=== PATIENT | female | born 1995 | race Caucasian/White ===

== ENCOUNTER 2024-09-08 23:21 | Emergency (ER) | payer OTHER, SELFPAY ==
[2024-09-08 23:24] VITALS: BP 152/93
--- NOTE | 2024-09-09 00:30 | ED.GENMED ---
History of Present Illness
General
Chief Complaint: Headache
Source: patient
Time Seen by Provider: 09/09/24 00:14
History of Present Illness
History of Present Illness:
28-year-old female with past medical history of migraines ADHD and anxiety presenting to the ER for evaluation of migraine headache that has been almost daily over the last 2 weeks described to be posterior and into her neck, pressure-like,
nonradiating, will be intermittently relieved with her triptan medication and Excedrin but returned shortly thereafter. Patient states she has been taking a triptan almost daily during this time but normally does not like taking the Excedrin due
to some of the side effects she feels. Patient has had a CT scan done a few years ago due to her migraines and is currently in the process of trying to follow-up with neurology but has been having trouble finding an appointment. She denies any
fevers, focal weakness or numbness or any other concerns presently. Social history was noted for smoking 1 pack/day as well as medical marijuana for her migraines.
Past History
Past History
ED Past Medical History: Psychiatric and Other (Migraines)
ED Past Surgical History: None
Social History
Tobacco: Smoker
Alcohol: None
Drug: None
Personal: Single
Living: with family
Family History
Family History: Hypertension
Review of Systems
Review of Systems
All Other Systems: ROS reviewed and negative except as documented in HPI and ROS
Phy Exam
Physical Exam
Physical Exam:
GENERAL: Alert , in no apparent distress
EYE: conjunctiva clear, pupils 4 mm bilateral, EOMI, PERRL
NECK: Supple, no significant adenopathy. no meningismus
ENT: o/p clr, mmm.
CARDIAC: Regular rate and rhythm
LUNGS: Clear breath sounds bilaterally, no acute respiratory distress, no wheezes/rales/rhonchi
NEUROLOGICAL: Alert and oriented, ambulates with steady gait, no dysmetria
SKIN: Warm and dry, skin intact.
MUSCULOSKELETAL: well perfused.
PSYCH: Normal and appropriate interaction.
Scores
Heart Failure Risk
Heart Failure Risk Score: Not Applicable
Heart Score for Chest Pain Patients
STEMI patient?: Not applicable
Withdrawal Assessment of Alcohol
Withdrawal Assessment Completed?: Not applicable
Course
Orders/Labs/Results
Orders:
Orders
09/09/24 00:29
0.9% Sodium Chloride 1000 ml [Nss] 1,000 ml IV BOLUS
Diphenhydramine [Benadryl] 25 mg IV NOW STA
Ketorolac [Toradol] 30 mg IV NOW STA
Metoclopramide [Reglan] 10 mg IV NOW STA
Vital Signs
Initial and Last Documented VS:
Initial Vital Signs
Temp Pulse Resp BP Pulse Ox
98.3 F 80 16 152/93 99
09/08/24 23:24 09/08/24 23:24 09/08/24 23:24 09/08/24 23:24 09/08/24 23:24
Last Documented Vital Signs
Temp Pulse Resp BP Pulse Ox
98.3 F 80 16 121/85 97
09/08/24 23:24 09/08/24 23:24 09/08/24 23:24 09/09/24 01:00 09/09/24 03:00
MDM/Problems Addressed
Differential Diagnosis Includes:
Migraine headache, tension headache, rebound headache from overuse of triptan medication, I do not have concern for intracranial bleeding or infectious etiology
MDM/Problems Addressed:
28-year-old female presenting to the ER for evaluation of persistent daily headaches over the last 2 weeks. History of migraines. Headaches do feel somewhat similar however is in a somewhat different location than her usual. Overall patient is
not exhibiting any focal neurologic deficits. I do not have concern for any acute neurologic complications. I do suspect some of patient's symptoms are likely due to overuse of her triptan medication. Will treat here in the ER with Reglan,
Benadryl, Toradol and fluids. Reassessment following. Discussed lifestyle modifications including smoking cessation
*Pulse Oximetry
Patient hypoxic: no
*Critical Care Note
Total Time (30-74mins, 75-104mins- exclusive of procedures): Not Applicable
Patient Management
Escalation/DeEscalation of care consider admission/obs:
Patient feeling significantly improved following medications. Steroid taper sent to pharmacy for continued migraine treatment. Encourage patient to avoid further treatment with her triptan due to excessive use. Follow-up with primary care
provider.
ED Attending Note
-
Portions of this chart may have been created with voice recognition software.� Occasional wrong word or��sound alike� substitutions may have occurred due to the inherent limitations of voice recognition software.
Discharge Plan
Departure
Patient Disposition: Home (Routine Discharge)
Date of Disposition: 09/09/24
Time of Disposition: 01:54
Patient with high blood pressure during this ER visit?: No
Discharge Problem:
Headache
Instructions: Headache, Adult (DC)
Prescriptions:
New
prednisone 10 mg Tablet
See Rx Instructions .ROUTE .COMPLEX Qty: 30 0RF
Rx Instructions:
Take By Mouth:
40 mg daily x3 days, 30 mg daily x3 days,
20 mg daily x3 days, 10 mg daily x3 days.
No Action
fluoxetine 10 MG capsule
20 mg PO DAILY
methylphenidate [Daytrana] 1 EACH patch 24 hour
1 patch transdermal DAILY
Stand Alone Forms: Return to Work
Interventions
Interventions:
*Risk Screen - Suicide Last Done: 09/08/24 23:24
*General Assessment Last Done: 09/08/24 23:24
*Neglect/Abuse Screening Last Done: 09/08/24 23:24
*ED- Fall Risk Assessment Last Done: 09/09/24 00:37
*ED COVID-19 Vaccine History Last Done: 09/09/24 00:37
*Nursing Disposition Last Done: 09/09/24 03:10
ED- Neurological Assessment Last Done: 09/09/24 00:38
Discharge Date and Time
Discharge Date/Time: 09/09/24 03:10
Print Language: PARAGUAYAN
[2024-09-09 00:36] VITALS: BP 124/93
[2024-09-09 00:37] VITALS: BMI 28.1
[2024-09-09] MEDS: NSS 1000 IV (00:50)
[2024-09-09] MEDS: REGLAN 10 MG IV (00:50)
[2024-09-09] MEDS: BENADRYL 25 MG IV (00:51)
[2024-09-09] MEDS: TORADOL 30 MG IV (00:52)
[2024-09-09 01:00] VITALS: BP 121/85
== END 2024-09-09 03:10 | disposition home or self-care (01) ==
LOC: EMR 23:21
PROVIDERS: EMERGENCY PHYSICIAN Emergency Medicine; FAMILY PHYSICIAN Internal Medicine
DX: R51.9 Headache, unspecified (principal); F41.9 Anxiety disorder, unspecified; F90.9 Attention-deficit hyperactivity disorder, unspecified type; F17.210 Nicotine dependence, cigarettes, uncomplicated; Z82.49 Family history of ischemic heart disease and other diseases of the circulatory system
CPT/HCPCS: 99282; 96374; 96375; 96360